=== PATIENT | male | born 1955 | race Caucasian/White ===

== ENCOUNTER 2019-02-03 07:21 | Day surgery (SDC) | payer OTHER ==
[2019-02-03] MEDS ORDERED: DEXAMETHASONE SOD PHOSPHATE 10 MG/1 ML VIAL IVPUSH ONE (09:00)
[2019-02-03] MEDS ORDERED: ACETAMINOPHEN 325 MG TABLET (FP) PO ONE (10:00)
[2019-02-03] MEDS ORDERED: DIPHENHYDRAMINE 50 MG in SODIUM CHLORIDE 50 ML IVPB ONE (10:00)
[2019-02-03] MEDS ORDERED: RITUXIMAB IVPB ONE (10:30)
[2019-02-03] MEDS ORDERED: SODIUM CHLORIDE IVPB ONE (10:30)
[2019-02-03 15:29] VITALS: BP 115/64; PULSE 50; TEMP 98
== END 2019-02-03 14:30 | disposition home or self-care (01) ==
LOC: JONCCHEMO 07:21 → J7W 08:46 → JONCCHEMO 14:30
PROVIDERS: ATTEND Internal Medicine Hematology & Oncology
PROC: 3E03305 Introduction of Other Antineoplastic into Peripheral Vein, Percutaneous Approach (ICD-10-PCS; principal; 2019-02-03)
PROC: 3E033GC Introduction of Other Therapeutic Substance into Peripheral Vein, Percutaneous Approach (ICD-10-PCS; 2019-02-03)
DX: Z51.11 Encounter for antineoplastic chemotherapy (principal); L10.0 Pemphigus vulgaris; C85.90 Non-Hodgkin lymphoma, unspecified, unspecified site
CPT/HCPCS: 96375; 96413; 96415; J1100; J7030; J9312

== ENCOUNTER 2019-02-17 07:16 | Day surgery (SDC) | payer OTHER ==
[2019-02-17] MEDS ORDERED: ACETAMINOPHEN 325 MG TABLET (FP) PO ONE (10:00)
[2019-02-17] MEDS ORDERED: DIPHENHYDRAMINE 50 MG in SODIUM CHLORIDE 50 ML IVPB ONE (10:00)
[2019-02-17] MEDS ORDERED: SODIUM CHLORIDE IVPB ONE (10:30)
[2019-02-17] MEDS ORDERED: RITUXIMAB IVPB ONE (10:30)
[2019-02-17 17:01] VITALS: BP 129/48; PULSE 49; TEMP 98
== END 2019-02-17 15:05 | disposition home or self-care (01) ==
LOC: JONCCHEMO 07:16 → J7W 08:47 → JONCCHEMO 15:05
PROVIDERS: ATTEND Internal Medicine Hematology & Oncology
PROC: 3E03305 Introduction of Other Antineoplastic into Peripheral Vein, Percutaneous Approach (ICD-10-PCS; principal; 2019-02-17)
PROC: 3E033GC Introduction of Other Therapeutic Substance into Peripheral Vein, Percutaneous Approach (ICD-10-PCS; 2019-02-17)
DX: Z51.11 Encounter for antineoplastic chemotherapy (principal); L10.0 Pemphigus vulgaris; C85.90 Non-Hodgkin lymphoma, unspecified, unspecified site
CPT/HCPCS: 96367; 96375; 96413; 96415; J7030; J9312

== ENCOUNTER 2022-03-02 04:18 | Day surgery (SDC) | payer OTHER, MEDICARE ==
[2022-02-27 12:40] VITALS: BMI 34.4
[2022-03-02 09:00] VITALS: TEMP 98
[2022-03-02 11:00] VITALS: BP 120/49; PULSE 48
== END 2022-03-02 10:00 | disposition home or self-care (01) ==
LOC: JASU-ENDO 04:18
PROVIDERS: ATTEND Internal Medicine Gastroenterology
PROC: 0DJD8ZZ Inspection of Lower Intestinal Tract, Via Natural or Artificial Opening Endoscopic (ICD-10-PCS; principal; 2022-03-02 08:00)
DX: Z12.11 Encounter for screening for malignant neoplasm of colon (principal); K63.89 Other specified diseases of intestine; K57.30 Diverticulosis of large intestine without perforation or abscess without bleeding; Z53.8 Procedure and treatment not carried out for other reasons

== ENCOUNTER 2023-07-09 08:09 | Day surgery (SDC) | payer OTHER, MEDICARE ==
[2023-07-09] MEDS ORDERED: ACETAMINOPHEN 325 MG TABLET (FP) PO ONE (09:30)
[2023-07-09] MEDS ORDERED: DEXAMETHASONE SODIUM PHOSPHATE 10 MG, DIPHENHYDRAMINE 50 MG in SODIUM CHLORIDE 100 ML IVPB ONE (09:30)
[2023-07-09] MEDS ORDERED: RITUXIMAB ABBS IVPB ONE (10:00)
[2023-07-09] MEDS ORDERED: SODIUM CHLORIDE IVPB ONE (10:00)
[2023-07-09 15:29] VITALS: RESP 20
[2023-07-09 15:39] VITALS: BP 103/57; PULSE 52; TEMP 97.8
== END 2023-07-09 14:45 | disposition home or self-care (01) ==
LOC: JONCNONCHE 08:09 → J7W 08:10 → JONCNONCHE 14:45
PROVIDERS: ATTEND Internal Medicine Hematology & Oncology
DX: L10.0 Pemphigus vulgaris (principal); Z76.89 Persons encountering health services in other specified circumstances
CPT/HCPCS: 96367; 96413; 96415; Q5115

== ENCOUNTER 2023-07-23 08:11 | Day surgery (SDC) | payer OTHER, MEDICARE ==
[2023-07-23] MEDS ORDERED: ACETAMINOPHEN 325 MG TABLET (FP) PO ONE (09:30)
[2023-07-23] MEDS ORDERED: DEXAMETHASONE SODIUM PHOSPHATE 10 MG, DIPHENHYDRAMINE 50 MG in SODIUM CHLORIDE 100 ML IVPB ONE (09:30)
[2023-07-23] MEDS ORDERED: RITUXIMAB ABBS IVPB ONE (10:00)
[2023-07-23] MEDS ORDERED: SODIUM CHLORIDE IVPB ONE (10:00)
[2023-07-23 17:45] VITALS: BP 102/62; PULSE 47; RESP 20; TEMP 97.4
== END 2023-07-23 15:15 | disposition home or self-care (01) ==
LOC: J7W 08:11 → JONCCHEMO 08:11
PROVIDERS: ATTEND Internal Medicine Hematology & Oncology
DX: L10.0 Pemphigus vulgaris (principal)
CPT/HCPCS: 96367; 96413; 96415; Q5115

== ENCOUNTER 2024-02-12 11:21 | Day surgery (SDC) | payer OTHER, MEDICARE ==
[2024-02-12] MEDS ORDERED: PROPOFOL 60 ML ONE (12:53)
[2024-02-12] MEDS ORDERED: FENTANYL CITRATE/PF 50 MCG/ML VIAL ONE (12:54)
[2024-02-12] MEDS ORDERED: MIDAZOLAM HCL 2 MG/2 ML SINGLE DOSE VIAL ONE (12:54)
[2024-02-12] MEDS ORDERED: ceFAZolin SODIUM 1 GM VIAL ONE (13:26)
[2024-02-12] MEDS: ceFAZolin SODIUM 1 GM VIAL IVPB ONE ×2 (13:30)
[2024-02-12] MEDS ORDERED: ONDANSETRON 4 MG/2 ML VIAL IVPUSH PRN (15:16)
[2024-02-12] MEDS ORDERED: LACTATED RINGERS SOLUTION 1,000 ML IV SCH (15:30)
[2024-02-12] MEDS: LACTATED RINGERS SOLUTION 1,000 ML IV SCH (16:15)
[2024-02-12 17:08] VITALS: BMI 37.8
[2024-02-12] MEDS ORDERED: traMADol HCL 50 MG TABLET PO PRN (17:21)
[2024-02-12] MEDS: PANTOPRAZOLE 20 MG TABLET PO ONE (17:48)
[2024-02-12] MEDS: oxyCODONE HCL 5 MG TABLET PO PRN (18:01)
[2024-02-12] MEDS: ACETAMINOPHEN 325 MG TABLET (FP) PO PRN ×2 (18:03→23:28)
[2024-02-12] MEDS: oxyCODONE HCL 5 MG TABLET PO ONE (21:53)
[2024-02-12] MEDS: ATORVASTATIN CA 20 MG TABLET (FP) PO SCH (21:54)
[2024-02-12] MEDS: CEFAZOLIN SODIUM 2 GM in DEXTROSE 5%-WATER 100 ML IVPB SCH (23:16)
[2024-02-12] MEDS: PANTOPRAZOLE SOD 40 MG SUSPENSION PACKET PO ONE (23:19)
[2024-02-12] MEDS: TIMOLOL 0.25% OPHTHALMIC SOL 5 ML BOTTLE OU SCH (23:24)
[2024-02-13] MEDS ORDERED: oxyCODONE HCL 5 MG TABLET PO PRN (02:00)
[2024-02-13] MEDS: oxyCODONE HCL 5 MG TABLET PO PRN (03:17)
[2024-02-13 03:40] VITALS: RESP 18
[2024-02-13] MEDS ORDERED: INSULIN (LEVEMIR) 100 UNITS/ML UNITS SQ ONE (06:48)
[2024-02-13 08:35] VITALS: BP 140/62; PULSE 70; TEMP 98.3
[2024-02-13] MEDS: PANTOPRAZOLE 20 MG TABLET PO SCH (09:58)
[2024-02-13] MEDS: HYDROCHLOROTHIAZIDE 25 MG TABLET (FP) PO SCH (09:58)
[2024-02-13] MEDS: amLODIPine BESYLATE 5 MG TABLET (FP) PO SCH (09:58)
[2024-02-13] MEDS: VALSARTAN 160 MG TABLET PO SCH (09:58)
[2024-02-13] MEDS ORDERED: PATIENT'S OWN MEDICATION (NON-FORMULARY) (Valsartan/Hydrochlorothiazide [Valsartan-Hctz 16 PO SCH (10:00)
[2024-02-13] MEDS ORDERED: ASPIRIN 325 MG TABLET PO SCH (10:00)
[2024-02-13] MEDS ORDERED: LATANOPROST 0.005% OPHTH SOLN 2.5ML BOTTLE OU SCH (22:00)
== END 2024-02-13 14:12 | disposition home or self-care (01) ==
LOC: JOR 11:21 → JASUSAT 11:36 → JASU-SURG 11:36 → J6S 16:34 → JASUSAT 02-13 14:12
PROVIDERS: ATTEND Orthopaedic Surgery
PROC: 0QSH06Z Reposition Left Tibia with Intramedullary Internal Fixation Device, Open Approach (ICD-10-PCS; principal; 2024-02-12 14:00)
DX: S82.202A Unspecified fracture of shaft of left tibia, initial encounter for closed fracture (principal); X58.XXXA Exposure to other specified factors, initial encounter; Y93.9 Activity, unspecified; Y92.9 Unspecified place or not applicable; Y99.9 Unspecified external cause status
CPT/HCPCS: 27759; C1713; 76000-TC-FY; 94760; 97116-GP; 97162-GP; 99285-25

== ENCOUNTER 2024-03-31 03:55 | Day surgery (SDC) | payer OTHER, MEDICARE ==
[2024-03-31 06:25] VITALS: RESP 16; TEMP 97.6
[2024-03-31 06:39] VITALS: BMI 33.7
[2024-03-31] MEDS ORDERED: GENTAMICIN SO4 80 MG/2 ML VIAL ONE (07:22)
[2024-03-31] MEDS ORDERED: BUPIVACAINE HCL/PF 0.5% (5MG/ML) 10 ML VIAL ONE (07:22)
[2024-03-31] MEDS ORDERED: LIDOCAINE 1%/EPI 1:100000 (20 ML MULTI DOSE VIAL) ONE (07:22)
[2024-03-31] MEDS ORDERED: MIDAZOLAM HCL 2 MG/2 ML SINGLE DOSE VIAL ONE (07:31)
[2024-03-31] MEDS ORDERED: LIDOCAINE HCL 1%, 10 MG/ML (20ML VIAL) ONE (07:39)
[2024-03-31] MEDS ORDERED: SUCCINYLCHOLINE CHLORIDE 200 MG/10 ML SYRINGE ONE (07:41)
[2024-03-31] MEDS ORDERED: PROPOFOL 20 ML ONE ×2 (07:41→07:53)
[2024-03-31] MEDS: LIDOCAINE HCL 1%, 10 MG/ML (20ML VIAL) NR ONE ×2 (07:50)
[2024-03-31] MEDS: ceFAZolin SODIUM 1 GM VIAL IVPB ONE (07:50)
[2024-03-31] MEDS ORDERED: oxyCODONE HCL 5 MG TABLET PO PRN (08:16)
[2024-03-31] MEDS ORDERED: LACTATED RINGERS SOLUTION 1,000 ML IV SCH (08:30)
[2024-03-31] MEDS ORDERED: oxyCODONE HCL 5 MG TABLET ONE (09:38)
[2024-03-31] MEDS: oxyCODONE HCL 5 MG TABLET PO PRN (09:40)
[2024-03-31 09:42] VITALS: BP 123/74; PULSE 54
== END 2024-03-31 10:06 | disposition home or self-care (01) ==
LOC: JASU-SURG 03:55
PROVIDERS: ATTEND Orthopaedic Surgery
PROC: 0QPH04Z Removal of Internal Fixation Device from Left Tibia, Open Approach (ICD-10-PCS; principal; 2024-03-31 07:30)
DX: Z47.2 Encounter for removal of internal fixation device (principal); S82.202D Unspecified fracture of shaft of left tibia, subsequent encounter for closed fracture with routine healing; Y99.9 Unspecified external cause status
CPT/HCPCS: 76000-TC-FY; 94760